=== PATIENT | female | born 1995 | race Caucasian/White ===

== ENCOUNTER 2017-10-17 19:31 | Emergency (ER) | payer SELFPAY ==
[2017-10-17 19:54] VITALS: BP 141/90
[2017-10-17] MEDS ORDERED: ONDANSETRON HCL/PF 2 MG/ML VIAL IV ONE (20:06)
[2017-10-17] MEDS ORDERED: NORMAL SALINE 1,000 ML IV ONE (20:06)
--- NOTE | 2017-10-17 20:15 | ERNOTE ---
Medical Problem HPI - Narrative Date of Service: 10/17/17 - General Chief Complaint: Nausea/Vomiting Time Seen by Provider: 10/17/17 19:57 Source: patient Exam Limitations: no limitations - Immun/Allergies/Home Medications Immunizations: IMMUNIZATION HX Immunizations Up to Date Yes History of Influenza Vaccine No Hx Pneumococcal Vaccination No Allergies/Adverse Reactions: Allergies No Known Allergies Allergy (Unverified 11/13/14 20:40) Home Medications: HOME MEDICATIONS Xopenex 11/13/14 [Last Taken Unknown] - History of Present History Narrative: Pt. comes in with c/o nausea na dvomitin for at least a week without being able to hold down any foods or fluids. 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 Pt. denies falling or hitting head. Pt. denies any diarrhea, SOB, CP, fevers, but does state that she has RUQ and RLQ pain for the last couple of weeks as well. Review of Systems - Review of Systems Constitutional: Present: no symptoms reported. Absent: recent illness, fever, chills, weakness, fatigue, malaise EYE: Present: no symptoms reported ENT: Present: no symptoms reported Respiratory: Present: no symptoms reported. Absent: shortness of breath, cough , wheezing Cardiology: Present: no symptoms reported. Absent: chest pain, palpitations, edema Gastrointestinal/Abdominal: Present: nausea, vomiting, abdominal pain. Absent: diarrhea, eating less, drinking less Genitourinary: Present: no symptoms reported Musculoskeletal: Present: no symptoms reported. Absent: back pain, joint pain Skin: Present: no symptoms reported. Absent: rash, change in color Neurological: Present: no symptoms reported. Absent: headache, dizziness/light- headedness, numbness, tingling All Other Systems: All systems neg except as marked - Patient's Past Medical History Patient History - Medical: No pertinent hx Patient History - Cardiac/Respiratory: Asthma Patient History - Surgical Procedures: T & A Patient History - Other: None LMP (Calendar): 08/10/17 - Social History Living Situations: significant other Abuse History: No History of abuse Psych History: Hx of Anxiety Smoking Status: Never smoker Have you smoked in the past 12 months: No Do you dip or chew tobacco: No Patient requests Smoking Cessation Consult: No Initiate information on Smoking Cessation: No Alcohol Use: none Drug Use: none - Immunizations Immunizations Up to Date: Yes Hx Pneumococcal Vaccination: No History of Influenza Vaccine: No Physical Exam - Physical Exam General Appearance: Present: wd/wn, alert, no apparent distress Head Exam: Present: normal inspection, no evidence of injury Eye Exam: Normal inspection: bilateral, PERRL: bilateral, EOMI: bilateral Ears, Nose, Throat: Present: normal ENT inspection, normal pharynx Neck: Present: normal inspection, nontender, supple, full range of motion. Absent: lymphadenopathy (R), lymphadenopathy (L) Respiratory: Present: no respiratory distress, normal breath sounds, no accessory muscle use, chest nontender, lungs clear Cardiovascular/Chest: Present: regular rate, rhythm, no murmur, normal peripheral pulses Gastrointestinal/Abdominal: Present: normal bowel sounds, nondistended, soft, tenderness - RUQ and RLQ, guarding. Absent: rebound, McBurney sign, Obturator sign, Everett sign, Psoas sign, mass, hernia, hepatomegaly Pelvic Exam: Absent: active bleeding, discharge Back Exam: Present: normal inspection, normal range of motion, no CVA tenderness , no vertebral tenderness Extremity Exam: Present: normal inspection, non-tender, normal range of motion, no edema Neurological Exam: Present: alert, oriented, normal mood/affect, no motor/ sensory deficits, block breaker operator II-XII nml as tested, normal cerebellar test Skin Exam: Present: warm/dry, pallor. Absent: skin rash ED Progress - Results and Orders Patient's Lab Results:: I have reviewed the patient's lab results. - Vital Signs Patient's Vital Signs:: I have reviewed the patient's vital signs. Vital Signs: Vital Signs 10/17/17 19:47 Temperature 36.7 C Pulse Rate 86 Respiratory 16 Rate Blood Pressure 141/90 O2 Sat by Pulse 100 Oximetry - CT/Ultrasound CT/Ultrasound Narrative: US notable for IUP 7week no complication noted corpus luteum cyst on R ovary noted - Progress/Reassessment Chief Complaint: Nausea/Vomiting Progress:: Improved Departure Clinical Impression: Hyperemesis affecting , antepartum - Departure Disposition: Home self-care Condition: Good Instructions: Eating Plan for Hyperemesis Gravidarum, Care Additional Instructions: When nauseated start by taking Parvin 125mg to 250 mg every six hours, if this does not work add in Vitamin B6 10mg to 25 mg every 8 hours and if this does not work may use Unisom 12.5 to 25 mg every 6 hours and if still not able to eat and drink please come to ER or call your CORPORATE ETHICS OFFICER.
[2017-10-17 20:25] LABS: Hematocrit 33.8 % (37.0-47.0); Hemoglobin 11.3 gm/dL (12.5-16.0); Mean Cell Volume 84.7 fl (78-100); Mean Corpuscular Hemoglobin 28.3 pg (27-31); Mean Corpuscular Hgb Conc 33.4 g/dl (32-36); Mean Platelet Volume 9.5 fl (6.0-9.5); Neutrophil # 8.5 K/mm3 (1.3-6.0); Neutrophil % 71.6 % (42-75.0); Platelet Count 298 K/mm3 (150-450); Red Blood Count 3.99 M/mm3 (4.2-5.4); Red Cell Distribution Width 14.6 % (11.5-14.0); White Blood Count 11.9 K/mm3 (4.0-10.5)
[2017-10-17] MEDS ORDERED: ONDANSETRON HCL/PF 2 MG/ML VIAL ONE (20:29)
[2017-10-17 21:05] LABS: BUN/Creatinine Ratio 12.3 (9.0-21.6)
[2017-10-17 21:06] LABS: Albumin * 4.2 gm/dl (3.4-5.0); Anion Gap 13.4 mmol/L (6.8-13.8); Bilirubin, Total 0.4 mg/dL (0.0-1.1); Ca. Corrected For Albumin 8.7 mg/dL (8.4-10.2); Calcium * 9.2 mg/dL (7.9-10.9); Potassium 3.4 mmol/L (3.4-4.6); Total Protein 7.8 gm/dL (6.2-8.2)
[2017-10-17 21:56] LABS: Urine Bilirubin Negative (NEGATIVE); Urine Blood 25 /ul (NEGATIVE); Urine Ketone 50 mg/dL (NEGATIVE); Urine Nitrite Negative (NEGATIVE); Urine Protein 15 mg/dL (NEGATIVE); Urine Specific Gravity 1.025 SP.GR. (1.005-1.010); Urine Urobilinogen Normal (NORMAL)
[2017-10-17 22:07] LABS: Urine Color Dark Yellow
[2017-10-17 22:08] LABS: Urine Appearance Cloudy; Urine Bacteria 2+; Urine RBC 0-5 /hpf (0-5); Urine WBC 0-5 /hpf (0-5)
== END 2017-10-17 22:34 | disposition home or self-care (01) ==
LOC: ER 19:31
DX: O21.0 Mild hyperemesis gravidarum (principal); Z3A.01 Less than 8 weeks gestation of pregnancy
CPT/HCPCS: 36415; 76801; 76817; 80053; 81001; 84702; 85025; 86901; 87086; 96374; 99284; J2405

== ENCOUNTER 2020-01-30 11:44 | Inpatient (IN) ==
[2020-01-30] MEDS ORDERED: CITRIC ACID/SODIUM CITRATE 60 ML BTL PO ONE (13:04)
[2020-01-30 13:06] LABS: Hematocrit 28.3 % (37.0-47.0); Hemoglobin 8.9 gm/dL (12.5-16.0); Mean Corpuscular Hemoglobin 26.1 pg (27-31); Mean Corpuscular Hgb Conc 31.4 g/dl (32-36); Mean Platelet Volume 10.7 fl (8-12.5); Neutrophil # 8.6 K/mm3 (1.3-6.0); Neutrophil % 67.4 % (42-75.0); Platelet Count 257 K/mm3 (150-450); Red Blood Count 3.41 M/mm3 (4.2-5.4); Red Cell Distribution Width 16.4 % (11.5-14.0); White Blood Count 12.7 K/mm3 (4.0-10.5)
[2020-01-30 13:10] LABS: Cocaine Ur Negative (NEGATIVE); Urine Barbiturate Negative (NEGATIVE); Urine Benzodiazepines Negative (NEGATIVE); Urine Opiates Negative (NEGATIVE); Urine PCP Negative (NEGATIVE); Urine THC Negative (NEGATIVE)
[2020-01-30 13:16] LABS: Random Urine Total Protein 6.7 mg/dL (0-12)
[2020-01-30 13:22] LABS: Anion Gap 14.7 mmol/L (6.8-13.8); BUN/Creatinine Ratio 7.4 (9.0-21.6); Bilirubin, Total 0.2 mg/dL (0.0-1.1); Calcium * 9.5 mg/dL (7.9-10.9); Carbon Dioxide 24.7 mmol/L (24-32.6); Potassium 3.4 mmol/L (3.4-4.6); Total Protein 7.3 gm/dL (6.2-8.2)
[2020-01-30] MEDS: RINGER'S SOLUTION,LACTATED 1,000 ML IV PRN ×2 (14:00→16:00)
[2020-01-30] MEDS ORDERED: OXYTOCIN 20 UNITS in RINGER'S SOLUTION,LACTATED 1,000 ML IV ONE (14:18)
--- NOTE | 2020-01-30 14:18 | HP ---
Chief Complaint - Chief Complaint Date of Service: 01/30/20 Time of Service: 13:20 Chief Complaint: decreased movement x 3 days History of Present Illness: 24 yo at 35 1/7 weeks presents to L&D complaining of decreased movement for the past 3 days. Patient states she tried lying down/different positions and eating/drinking more with no change. She further complains of itching for 2 weeks which started on her legs and spread to her trunk and extremities/including the palms of her hands and soles of her feet. The s/s are worse at night. She also complains of random RUQ pain not associated pre/post meals, increased heartburn, and occasional visual changes (flashes of light) if she stands up too quickly. She denies headaches, edema, N/V/F/C/D, contractions, or any trauma. This complicated by anemia, history of asthma, history of ADHD/anxiety/depression, pruritis, and now decreased FM. Rh positive Rubella immune GBS pending (negative with prior ) Medical History (Last Reviewed 01/30/20 @ 13:32 by Chau Zeng DO) History of depression (Inactive) Post- depression (Resolved) improved on Lexapro Abnormal Pap smear of cervix Onset Date: 07/15/19 ASCUS +HPV HR Gastroesophageal reflux Onset Date: Unknown No medications 10/31/17 Migraine Onset Date: Unknown Anemia Onset Date: ~2017 2016 & 2017. 2017-No current supplementation. 2018-w/. Anxiety Onset Date: ~2016 Tx'd w/Zoloft. No current medications. D/C Zoloft approx. 6 months ago. 10/31/17. Bacterial vaginitis (Resolved) Breast abscess-del w/ complication Onset Date: ~07/2018 drainage of rt breast abscess in 07/2018 after mastitis Chlamydia Onset Date: 10/31/17 during Depression Onset Date: ~2015 2016-See comments under "anxiety." Mastitis Onset Date: 06/13/18 Mononucleosis Onset Date: Unknown 6th grade Asthma Onset Date: ~2017 As a baby Headache Onset Date: Unknown Surgical History: Surgical History (Last Reviewed 01/30/20 @ 13:32 by Chau Zeng DO) History of adenoidectomy Onset Date: ~12/2011 History of incision and drainage Onset Date: 07/18/18 Aurea-right breast abscess History of oral surgery Onset Date: ~2009 Abscessed molar History of tonsillectomy Onset Date: ~12/2011 Family History: Family History (Last Reviewed 01/30/20 @ 13:32 by Chau Zeng DO) Brother ADHD Bipolar disorder Father CVA (cerebral vascular accident) Grandfather Lung cancer paternal Grandfather Diabetes maternal Grandmother Brain cancer paternal Mother Hypertension Brother Alive and well 2 brothers Social History: (Last Reviewed 01/30/20 @ 13:32 by Chau Zeng DO) Social History: Marital status: household members: spouse number of children: 1 current occupational status: employed current occupation: [employer] Highest education level completed: some college, no degree Service: No Tobacco: Smoking Status: Never smoker Alcohol: alcohol intake: never Substance Use: substance use type: does not use Dietary Habits: caffeine: No Rachna/Jainism: agree to transfusion: Yes Personal Safety: victim of physical abuse: No victim of emotional abuse: No Review Of Systems (GEN) - Review of Systems EENTM: Present: Other - flashes of light with quick position changes Respiratory: Present: No Symptoms Reported Cardiac: Present: No Symptoms Reported Abdominal: Present: Other - intermittent RUQ pain, Heartburn Genitourinary: Present: No Symptoms Reported Musculoskeletal: Present: Back Pain - low Neurological: Present: No Symptoms Reported Skin: Present: Other - itching trunk and extremities, hands and feet (palm/soles) alhaji at night. Endocrine: Present: No Symptoms Reported Additional Comments: decreased movement Immunizations: IMMUNIZATION HX Immunizations Up to Date Yes History of Influenza Vaccine No Hx Pneumococcal Vaccination No Allergies/Adverse Reactions: Allergies Allergy/AdvReac Type Severity Reaction Status Date / Time No Known Allergies Allergy Verified 01/30/20 11:53 Home Medications: HOME MEDICATIONS albuterol sulfate 90 mcg/actuation aerosol inhaler 2 puff IH Q4H PRN 08/27/19 [Last Taken Unknown] ferrous sulfate 325 mg (65 mg iron) tablet 325 mg PO DAILY #30 tab 12/01/19 [Last Taken Unknown] pediatric multivitamin 2 tab PO DAILY tab 12/01/19 [Last Taken Unknown] omeprazole 20 mg capsule,delayed release 20 mg PO DAILY PRN 01/26/20 [Last Taken 01/28/20] Exam - Exam Vital Signs: Vital Signs - Last Taken Temp 36.6 C 01/30/20 11:53 Pulse 106 H 01/30/20 11:53 Resp 18 01/30/20 11:53 BP 136/92 H 01/30/20 12:23 Pulse Ox 99 01/30/20 11:53 Constitutional: Present: Alert, Oriented x3, Cooperative, Other - flattened/sad affect ENT Exam: Present: hearing grossly normal Neck: Present: non-tender. Absent: thyromegaly Back Exam: Present: no CVA tenderness Breasts: Present: Exam deferred Respiratory: Present: lungs clear, no respiratory distress Cardiovascular/Chest: Present: no edema, no murmur - regular rate, tachycardia - mild Abdomen: Present: soft, no rebound tenderness, other - mild RUQ tenderness. Absent: CVA tenderness /Rectal: Present: Other - Cervix - 12/12/ Extremity: Present: no pedal edema, no calf tenderness Skin Exam: Present: normal color, warm/dry, no cyanosis. Absent: skin rash Lymphatic: Present: no adenopathy Neurologic: Present: normal mood/affect Appearance: Present: appropriate appearance, appropriate insight Eye contact: Present: cooperative, good eye contact Thoughts: Present: normal thought pattern Diagnostic Studies: Abnormal Lab Results 01/30/20 01/30/20 Range/Units 12:50 12:50 WBC 12.7 H (4.0-10.5) K/mm3 RBC 3.41 L (4.2-5.4) M/mm3 Hgb 8.9 L (12.5-16.0) gm/dL Hct 28.3 L (37.0-47.0) % MCH 26.1 L (27-31) pg MCHC 31.4 L (32-36) g/dl RDW 16.4 H (11.5-14.0) % Immature Gran % (Auto) 2.30 H (0.001-0.429) % Immature Gran # (Auto) 0.29 H (0.000-0.0310) K/mm3 Neutrophils # 8.6 H (1.3-6.0) K/mm3 Ur Random Creatinine 24.4 L (60-200) mg/dL U [place] Prot/Creat Ratio 275 H (0-199) mg/gm Laboratory Results WBC 12.7 K/mm3 (4.0-10.5) H 01/30/20 12:50 RBC 3.41 M/mm3 (4.2-5.4) L 01/30/20 12:50 Hgb 8.9 gm/dL (12.5-16.0) L 01/30/20 12:50 Hct 28.3 % (37.0-47.0) L 01/30/20 12:50 MCV 83.0 fl (78-100) 01/30/20 12:50 MCH 26.1 pg (27-31) L 01/30/20 12:50 MCHC 31.4 g/dl (32-36) L 01/30/20 12:50 RDW 16.4 % (11.5-14.0) H 01/30/20 12:50 Plt Count 257 K/mm3 (150-450) 01/30/20 12:50 MPV 10.7 fl (8-12.5) 01/30/20 12:50 Immature Gran % (Auto) 2.30 % (0.001-0.429) H 01/30/20 12:50 Immature Gran # (Auto) 0.29 K/mm3 (0.000-0.0310) H 01/30/20 12:50 Neutrophils % 67.4 % (42-75.0) 01/30/20 12:50 Lymphocytes % 21.8 % (20-51) 01/30/20 12:50 Monocytes % 6.1 % (0.0-9) 01/30/20 12:50 Eosinophils % 1.8 % (0.0-3.0) 01/30/20 12:50 Basophils % 0.6 % (0.0-1.0) 01/30/20 12:50 Nucleated RBC % 0.0 k/mm3 (0-1) 01/30/20 12:50 Neutrophils # 8.6 K/mm3 (1.3-6.0) H 01/30/20 12:50 Lymphocytes # 2.77 k/mm3 (1.5-3.5) 01/30/20 12:50 Monocytes # 0.8 k/mm3 (0.0-1.0) 01/30/20 12:50 Eosinophils # 0.2 k/mm3 (0.0-0.7) 01/30/20 12:50 Absolute Basophils 0.1 k/mm3 (0.0-0.1) 01/30/20 12:50 Ur Random Creatinine 24.4 mg/dL (60-200) L 01/30/20 12:50 U Random Total Protein 6.7 mg/dL (0-12) 01/30/20 12:50 U [place] Prot/Creat Ratio 275 mg/gm (0-199) H 01/30/20 12:50 Urine Opiates Screen Negative (NEGATIVE) 01/30/20 12:50 Barbiturate Screen Negative (NEGATIVE) 01/30/20 12:50 Ur Phencyclidine Scrn Negative (NEGATIVE) 01/30/20 12:50 Urine Amphetamine Negative (NEGATIVE) 01/30/20 12:50 U Benzodiazepines Scrn Negative (NEGATIVE) 01/30/20 12:50 Urine Cocaine Screen Negative (NEGATIVE) 01/30/20 12:50 Urine Marijuana (THC) Negative (NEGATIVE) 01/30/20 12:50 tracing - sinusoidal appearance, baseline 145. No decelerations. Assessment/Plan - Assessment/Plan (1) Non-reassuring electronic monitoring tracing Assessment: Sinusoidal-like tracing with unfavorable cervix. Phone consult with [facility] system MFM fellow, Sofi Rosenthal. Pictures of tracing sent to them for review. Recommendation was to proceed with emergent section for possible severe anemia. Risk, benefits, and alternatives discussed with the patient. We will proceed with emergent section. All questions answered. Will obtain blood sample from baby, KB, and prepare for possible transfusion of baby. Problem: Acute (2) Decreased movement Problem: Acute Qualifiers: Fetus number: single or unspecified fetus Trimester: third trimester Qualified Code(s): O36.8130 - Decreased movements, third trimester, not applicable or unspecified (3) Asthma Problem: Acute Qualifiers: Asthma severity: mild Asthma persistence: intermittent Asthma complication type: uncomplicated Qualified Code(s): J45.20 - Mild intermittent asthma, uncomplicated (4) Anemia Problem: Acute Qualifiers: Anemia type: iron deficiency Iron deficiency anemia type: inadequate dietary iron intake Qualified Code(s): D50.8 - Other iron deficiency anemias (5) History of depression Problem: Inactive
[2020-01-30] MEDS ORDERED: ceFAZolin SODIUM/DEXTROSE,ISO 2 GM/50 ML BAG IV PRN (14:23)
--- NOTE | 2020-01-30 14:36 | ANES ---
Anesthesia Pre Procedure Eval Vitals/Labs: Last Vital Signs Temp 36.6 C 01/30/20 11:53 Pulse 106 H 01/30/20 11:53 Resp 18 01/30/20 11:53 BP 136/92 H 01/30/20 12:23 Pulse Ox 99 01/30/20 11:53 HOME MEDICATIONS albuterol sulfate 90 mcg/actuation aerosol inhaler 2 puff IH Q4H PRN 08/27/19 [Last Taken Unknown] ferrous sulfate 325 mg (65 mg iron) tablet 325 mg PO DAILY #30 tab 12/01/19 [Last Taken Unknown] pediatric multivitamin 2 tab PO DAILY tab 12/01/19 [Last Taken Unknown] omeprazole 20 mg capsule,delayed release 20 mg PO DAILY PRN 01/26/20 [Last Taken 01/28/20] Allergies/Adverse Reactions: Allergies Allergy/AdvReac Type Severity Reaction Status Date / Time No Known Allergies Allergy Verified 01/30/20 11:53 - Planned Procedure Planned Procedure: decrease movement Medication List Reviewed:: Yes Allergies Verified: Yes Medical History (Last Reviewed 01/30/20 @ 14:35 by Av Palmer CRNA) History of depression (Inactive) Post- depression (Resolved) improved on Lexapro Abnormal Pap smear of cervix Onset Date: 07/15/19 ASCUS +HPV HR Gastroesophageal reflux Onset Date: Unknown No medications 10/31/17 Migraine Onset Date: Unknown Anemia Onset Date: ~2017 2016 & 2017. 2017-No current supplementation. 2018-w/. Anxiety Onset Date: ~2016 Tx'd w/Zoloft. No current medications. D/C Zoloft approx. 6 months ago. 10/31/17. Bacterial vaginitis (Resolved) Breast abscess-del w/ complication Onset Date: ~07/2018 drainage of rt breast abscess in 07/2018 after mastitis Chlamydia Onset Date: 10/31/17 during Depression Onset Date: ~2015 2016-See comments under "anxiety." Mastitis Onset Date: 06/13/18 Mononucleosis Onset Date: Unknown 6th grade Asthma Onset Date: ~2016 As a baby Headache Onset Date: Unknown Surgical History (Last Reviewed 01/30/20 @ 14:35 by Av Palmer CRNA) History of adenoidectomy Onset Date: ~12/2011 History of incision and drainage Onset Date: 07/18/18 Aurea-right breast abscess History of oral surgery Onset Date: ~2009 Abscessed molar History of tonsillectomy Onset Date: ~12/2011 Family History (Last Reviewed 01/30/20 @ 14:35 by Av Palmer CRNA) Brother ADHD Bipolar disorder Father CVA (cerebral vascular accident) Grandfather Lung cancer paternal Grandfather Diabetes maternal Grandmother Brain cancer paternal Mother Hypertension Brother Alive and well 2 brothers - Family Anesthesia History Family History:: no untoward family reactions to anesthesia, no familial bleeding tendencies, no family history of clotting disorders, no family history of premature - Airway/Neck/Teeth Within Normal Limits:: Yes Teeth Condition: intact Neck Exam: full range of motion Mallampatti Score: 2 Thyromental (T-M) distance: > 6 cm Mandibulo Hyoid distance: > 3 cm - Respiratory Respiratory History: asthma Respiratory Physical: lungs clear Smoking Status: Never smoker Sleep Apnea currently treated: No Sleep Apnea by current assessment: No - Cardiovascular Tolerate Activity: Fair Heart Sounds: S1 & S2, Regular - Gastrointestinal NPO since: 0900 - Anesthesia Assessment and Plan ASA Class: PS, II, E Anesthesia Type Plan: Block - Bilateral TAP for post op pain relief, Spinal
[2020-01-30] MEDS ORDERED: BUPIVACAINE HCL/EPINEPHRINE/PF 30 ML VIAL IJ ONE (15:44)
--- NOTE | 2020-01-30 16:04 | ANES ---
Post Anesthesia Discharge - Transfer of Care Transfer of Care handoff given to nurse: Yes - Discharge from PACU Discharge from PACU when meets criteria: Yes - Comfortable but anxious.
--- NOTE | 2020-01-30 16:05 | ANES ---
Anesthesia Procedure Note Procedure Note: ANESTHESIA PROCEDURE NOTE Date of Procedure: [01/31/2020 Time of procedure: 1550. Performed by: JENN Dang CRNA, MSN Tool And Die Manager: Jordana Solomon RN. Preprocedure diagnosis: Post section pain. Post procedure diagnosis: Same. Procedure: Bilateral TAP block Indications: Post section pain relief. Findings: See below. Details of the procedure: The patient was brought to PACU and placed in the supine position. The patient was prepped with chlorhexidine and using u ltrasound guidance the 3 abdominal muscular planes were identified and lidocaine 1% was infiltrated to the skin of the intended injection site. Under ultrasound guidance the the internal oblique and transverse this abdominis muscle layers were approached with visualization of a 4 inch block needle until the tip of the needle rested in the plane between the muscles. 25 mL bupivacaine 0.5% with 1-200,000 epinephrine was injected and the procedure was repeated on the other side. Please see radiology/ultrasound report for details and images of the procedure. EBL: 0 Fluids: N/A. Specimen: N/A. Post procedure condition: The patient tolerated the procedure well. No complications were noted. Thank you for this consultation. Av Palmer CRNA, ARNP, MSN
[2020-01-30] MEDS ORDERED: SIMETHICONE 80 MG TAB.CHEW PO PRN (16:17)
[2020-01-30] MEDS ORDERED: IBUPROFEN 800 MG TABLET PO PRN (16:17)
[2020-01-30] MEDS ORDERED: ONDANSETRON HCL/PF 2 MG/ML VIAL IV PRN (16:17)
[2020-01-30] MEDS ORDERED: BISACODYL 10 MG SUPP.RECT RC PRN (16:17)
[2020-01-30] MEDS ORDERED: SENNOSIDES 8.6 MG TABLET PO PRN (16:17)
--- NOTE | 2020-01-30 16:17 | ANES ---
Post Anesthesia Assessment - Vital Signs Vitals: Last Vital Signs Temp 36.6 C 01/30/20 11:53 Pulse 106 H 01/30/20 11:53 Resp 18 01/30/20 11:53 BP 136/92 H 01/30/20 12:23 Pulse Ox 99 01/30/20 11:53 Airway Patency: Normal - Mental Status Level Of Consciousness: Awake, Alert, Appropriate - Pain Level Pain Score: 0 - N/V Assessment Nausea/Vomiting Presence: None Dehydration:: No
[2020-01-30] MEDS: IBUPROFEN 800 MG TABLET PO PRN ×2 (16:40→22:44)
[2020-01-30] MEDS: oxyCODONE HCL/ACETAMINOPHEN 1 TAB TABLET PO PRN ×3 (16:41→22:44)
--- NOTE | 2020-01-30 17:02 | OR ---
Operative Report - Dictated Report Narrative: Indication: 24-year-old 2 para 1 at 35 1/7 weeks presented to labor and delivery complaining of decreased movement for the past 3 days and has been itching for the past 2 weeks, especially her hands and feet at night. In labor and delivery, patient had elevated blood pressures and a nonreactive NST which showed a sinusoidal-like pattern with short periods of moderate variability. MFM consult was obtained from [facility] with the recommendation to proceed with emerg ent section. Status: Emergent ( called at 1415. Incision time 1451. time 1454.) Pre Operative Diagnosis: 35 one 7-week intrauterine . Nonreassuring tracing. Post Operative Diagnosis: Same. Procedure Preformed: Primary Low Transverse Section Surgeon: Irene Zeng DO Child Daycare Worker: OR Staff Anesthesia: Spinal. TAP block postdelivery Estimated Blood Loss: 500 mL Urine Output: 250 mL of clear urine Fluids Given: 1800 mL of crystalloid Drains: Zuñiga to gravity Surgical Complications: None Specimens: Placenta to pathology Findings: Very pale with fair tone and weak cry born at 1454 with Apgars 1, 2, 4, 5, 5, weighing 2664 g in cephalic presentation. Normal uterus, tubes, ovaries, and placenta. Cord blood gases: Arterial pH 7.26, base excess -3.8, Venous pH 7.35, base excess -1.1 Technique: The patient was taken to the operating room and placed in dorsal supine position with a left lateral tilt. After adequate spinal anesthesia, zuñiga catheter insertion,SCDs placed, and 2 g of Ancef given preoperatively, the abdominal cavity was entered via a modified Gideon-Arauz incision. A transverse incision was made in the lower uterine segment and extended laterally and upwardly with digital traction. Clear fluid was noted upon amniotomy. The was delivered easily. The cord was milked several times towards the baby, then clamped and cut. was handed off to awaiting brick setter. Cord gases were obtained. The placenta was allowed to deliver spontaneously. The uterus was cleared of clot and debris. Uterine incision was closed with 0 Vicryl using a running stitch. A second imbricating layer was placed. A [id number]-[id number] suture was placed in the left corner of the incision, Excellent hemostasis was noted. The peritoneum was closed with a running 3-0 Monocryl. The same suture was used to approximate the rectus and pyramidalis muscles. The fascia was closed with a running 0 Vicryl. The subcutaneous layer was closed with a running 3-0 Monocryl. The same suture was used to approximate the subdermal layer. The skin was closed with a running 4-0 Monocryl and Dermabond. Sponge, lap, needle, and instrument count were correct x 2. Disposition: The patient was transferred to post anesthesia care unit in good condition
[2020-01-30] MEDS: FERROUS SULFATE 325 MG TABLET PO SCH (19:42)
[2020-01-30] MEDS: DOCUSATE SODIUM 100 MG CAPSULE PO SCH (21:56)
[2020-01-30] MEDS: ENOXAPARIN SODIUM 40 MG/0.4 ML SYRG SC SCH (21:58)
[2020-01-31] MEDS: oxyCODONE HCL/ACETAMINOPHEN 1 TAB TABLET PO PRN ×6 (02:06→20:50)
[2020-01-31] MEDS: IBUPROFEN 800 MG TABLET PO PRN ×3 (05:01→20:49)
[2020-01-31] MEDS ORDERED: ceFAZolin SODIUM 1 GM VIAL IV PRN (06:00)
[2020-01-31] MEDS: DOCUSATE SODIUM 100 MG CAPSULE PO SCH ×2 (09:21→20:49)
[2020-01-31] MEDS: FERROUS SULFATE 325 MG TABLET PO SCH ×2 (09:21→20:49)
--- NOTE | 2020-01-31 11:34 | PN ---
Subjective - Date and Time Seen Date: 01/31/20 Time: 11:25 Objective - Vitals Vitals: Last Vital Signs Temp 36.0 C 01/31/20 06:51 Pulse 88 01/31/20 06:51 Resp 20 01/31/20 06:51 BP 124/77 01/31/20 06:51 Pulse Ox 99 01/31/20 03:28 Patient states only minor itching on the hands today. Tolerating regular diet. Ambulating without difficulty. Pain well controlled. Lochia wnl. Abdomen - soft, appropriately tender Incision -clean, dry, intact uterus - firm, at umbilicus -1 no calf tenderness Impression: Post op day #1 s/p primary section. Suspected IHCP-labs pending. Baby transferred to [facility] for respiratory distress/severe anemia shortly after . Plan: Continue routine post-operative/ care. Will discharge as soon as patient is doing well enough so she can be with baby. - Abnormal Lab Findings Abnormal Lab Findings: Abnormal Lab Results 01/30/20 01/30/20 01/30/20 Range/Units 12:50 12:50 12:50 WBC 12.7 H (4.0-10.5) K/mm3 RBC 3.41 L (4.2-5.4) M/mm3 Hgb 8.9 L (12.5-16.0) gm/dL Hct 28.3 L (37.0-47.0) % MCH 26.1 L (27-31) pg MCHC 31.4 L (32-36) g/dl RDW 16.4 H (11.5-14.0) % Immature Gran % (Auto) 2.30 H (0.001-0.429) % Immature Gran # (Auto) 0.29 H (0.000-0.0310) K/mm3 Neutrophils # 8.6 H (1.3-6.0) K/mm3 Anion Gap 14.7 H (6.8-13.8) mmol/L BUN/Creatinine Ratio 7.4 L (9.0-21.6) ALT 16 L (19-67) U/L Albumin 3.0 L (3.4-5.0) gm/dl Ur Random Creatinine 24.4 L (60-200) mg/dL U [place] Prot/Creat Ratio 275 H (0-199) mg/gm Cauti Physician Documentation - Urinary Catheter Management Urethral (Schroeder) Date of Insertion: 01/30/20 Time of Insertion: 14:47 Date of Removal: 01/31/20 Time of Removal: 02:45 Assessment/Plan - Problems/Diagnosis (1) Non-reassuring electronic monitoring tracing Problem: Acute (2) Decreased movement Problem: Acute Qualifiers: Fetus number: single or unspecified fetus Trimester: third trimester Qualified Code(s): O36.8130 - Decreased movements, third trimester, not applicable or unspecified (3) Asthma Problem: Acute Qualifiers: Asthma severity: mild Asthma persistence: intermittent Asthma complication type: uncomplicated Qualified Code(s): J45.20 - Mild intermittent asthma, uncomplicated (4) Anemia Problem: Acute Qualifiers: Anemia type: iron deficiency Iron deficiency anemia type: inadequate dietary iron intake Qualified Code(s): D50.8 - Other iron deficiency anemias (5) History of depression Problem: Inactive
[2020-01-31] MEDS: ENOXAPARIN SODIUM 40 MG/0.4 ML SYRG SC SCH (21:00)
[2020-02-01] MEDS: oxyCODONE HCL/ACETAMINOPHEN 1 TAB TABLET PO PRN ×3 (02:57→12:33)
[2020-02-01] MEDS: IBUPROFEN 800 MG TABLET PO PRN ×2 (02:58→12:34)
[2020-02-01] MEDS: DOCUSATE SODIUM 100 MG CAPSULE PO SCH ×2 (07:55→15:56)
[2020-02-01] MEDS: FERROUS SULFATE 325 MG TABLET PO SCH ×2 (07:55→15:56)
--- NOTE | 2020-02-01 09:40 | PN ---
Subjective - Date and Time Seen Date: 02/01/20 Time: 09:37 Objective - Vitals Vitals: Last Vital Signs Temp 36.8 C 02/01/20 06:25 Pulse 82 02/01/20 06:25 Resp 20 02/01/20 06:25 BP 127/91 H 02/01/20 06:25 Pulse Ox 100 02/01/20 06:25 Patient denies headache, visual changes, epigastric pain, pruritus. Denies thoughts of hurting herself, baby, or others. Blood pressures remain mildly elevated. Ambulating well. Tolerating regular diet. Pain well controlled. Lochia wnl. Abdomen - soft, appropriately tender Incision -clean, dry, intact uterus - firm, at umbilicus -2 DTR-2/4, no clonus. No calf tenderness Impression: Post op day #2 s/p primary section for sinusoidal rhythm on tracing. Gestational hypertension. depression. Plan: Continue routine post-operative/ care. Early discharge so mom can be with baby with close follow-up after discharge. Signs symptoms of preeclampsia reviewed with patient. Patient to take blood pressure twice a day at home and call for elevated pressures or any signs or symptoms of preeclampsia. Will start on Lexapro 20 mg p.o. daily. Call if symptoms of depression worsen or suicidal thoughts. [facility] Physician Documentation - Urinary Catheter Management Urethral (Schroeder) Date of Insertion: 01/30/20 Time of Insertion: 14:47 Date of Removal: 01/31/20 Time of Removal: 02:45 Assessment/Plan - Problems/Diagnosis (1) Non-reassuring electronic monitoring tracing Problem: Acute (2) Decreased movement Problem: Acute Qualifiers: Fetus number: single or unspecified fetus Trimester: third trimester Qualified Code(s): O36.8130 - Decreased movements, third trimester, not applicable or unspecified (3) Asthma Problem: Acute Qualifiers: Asthma severity: mild Asthma persistence: intermittent Asthma complication type: uncomplicated Qualified Code(s): J45.20 - Mild intermittent asthma, uncomplicated (4) Anemia Problem: Acute Qualifiers: Anemia type: iron deficiency Iron deficiency anemia type: inadequate dietary iron intake Qualified Code(s): D50.8 - Other iron deficiency anemias (5) History of depression Problem: Inactive (6) Gestational hypertension Problem: Acute Qualifiers: Trimester: third trimester Qualified Code(s): O13.3 - Gestational [-induced] hypertension without significant proteinuria, third trimester (7) Post- depression Problem: Acute
[2020-02-01 12:05] VITALS: BP 128/86
--- NOTE | 2020-02-01 13:09 | PN ---
Progess Note - Interim Date: 02/01/20 Time: 13:09 History for MU History for MU Definition: * The number of deliveries resulting in a live the patient experienced prior to current hospitalization * The previous delivery of live twins or any live multiple gestation is considered one live event. *If primagravida or nulliparous is documented select zero for the number of previous live births. Live Events: Live Events: 1
[2020-02-03 14:10] LABS: Chenodeoxycholic Acid 0.5 umol/L (< OR = 3.1); Cholic Acid 0.6 umol/L (< OR = 1.8)
[2020-02-03 15:48] LABS: Bile Acids, Total 2.3 umol/L (< OR = 6.8)
== END 2020-02-01 12:40 | disposition home or self-care (01) | DRG 786 ==
LOC: OBCLINIC 11:44 → OB 13:09
PROVIDERS: ADMIT Obstetrics & Gynecology; ATTEND Obstetrics & Gynecology
CPT/HCPCS: 36415; 59025; 80053; 80307; 82570; 83789; 84155; 84156; 85025; 86850; 87081; 88307; 88888